=== PATIENT | male | born 1945 | race African-American/Black ===

== ENCOUNTER 2018-05-23 10:07 | Observation (INO) | payer OTHER ==
[2018-05-20 09:59] LABS: BASOPHILS # (AUTO) 0.1 (0.0-0.1); BASOPHILS % 0.9 % (0.0-1.0); EOSINOPHILS # (AUTO) 0.2 (0.0-0.4); EOSINOPHILS % 2.3 % (0.0-6.0); HEMATOCRIT 43.8 % (38.2-49.6); HEMOGLOBIN 14.6 g/dL (14.0-18.0); LYMPHOCYTES # (AUTO) 1.4 (1.0-3.2); LYMPHOCYTES % 17.4 % (18.0-39.1); MEAN CORPUSCULAR HEMOGLOBIN 29.3 pg (28-32); MEAN CORPUSCULAR HGB CONC 33.3 g/dL (31-35); MONOCYTES # (AUTO) 0.7 (0.2-0.8); NEUTROPHILS # (AUTO) 5.8 (2.1-6.9); NEUTROPHILS % 70.2 % (38.7-80.0); PLATELET COUNT 283 x10e3/uL (140-360); RED BLOOD COUNT 4.98 x10e6/uL (4.3-5.7)
[2018-05-20 10:10] LABS: ANION GAP 16.7 mmol/L (8-16); BLOOD UREA NITROGEN 18 mg/dL (7-26); BUN/CREATININE RATIO 15 (6-25); CALCIUM 9.9 mg/dL (8.4-10.2); CARBON DIOXIDE 25 mmol/L (22-29); CHLORIDE 101 mmol/L (98-107); CREATININE, SERUM 1.19 mg/dL (0.72-1.25); EST GLOMERULAR FILTRATION RATE > 60 ML/MIN (60-); GLUCOSE 112 mg/dL (74-118); POTASSIUM 3.7 mmol/L (3.5-5.1); SODIUM 139 mmol/L (136-145)
--- NOTE | 2018-05-20 10:57 | Diagnostic Imaging Report ---
PROCEDURE: Frontal and lateral views of the chest. COMPARISON: None. INDICATIONS: PRE OPERATIVE CHEST X-RAY FOR UROLOGY [id number] FINDINGS: Lines/tubes: None. Lungs: The lungs are well inflated and clear. There is no evidence of pneumonia or pulmonary edema. Pleura: There is no pleural effusion or pneumothorax. Heart and mediastinum: The cardiomediastinal silhouette is unremarkable. Bones: No acute bony abnormality. IMPRESSION: No acute radiographic abnormality. Dictated by: SHEILA TOTH M.D. on 05/20/2018 at 11:05 Electronically approved by: SHEILA TOTH M.D. on 05/20/2018 at 11:05
[~2018-05-23] VITALS: Ht 175.3 cm; Wt 110.8 kg
[~2018-05-23 10:07] MED LIST: ACTOS15 MG PO; AMLODIPINE BESY10 MG PO; ASPIR-LOW81 MG PO; ASPIRIN325 MG PO; BYDUREON2 MG SQ; FISH OIL 1,0001 EAC2 PO; FUROSEMIDE40 MG PO; HYDROCHLOROTHIA25 MG PO; IRON325 M1; IRON325 MG PO; JANUMET XR 50-1 EAC1 PO; LIPITOR10 MG PO; LISINOPRIL-HCT1 EAC1 PO; LISINOPRIL10 MG PO; METFORMIN HCL500 MG PO; METOPROLOL SUCC50 MG PO; MINOXIDIL2.5 MG PO; MOBIC7.5 MG PO; NIACIN500 M1 PO; OMEPRAZOLE20 MG PO; TESTOSTERO200 MG/1 M IM; VIT B-12 PO
[2018-05-23] MEDS ORDERED: CEFTRIAXONE SOD 1 GM VIAL ONE (10:28)
[2018-05-23] MEDS ORDERED: CLINDAMYCIN 300MG 50 ML IV ONE (10:29)
[2018-05-23] MEDS ORDERED: GENTAMICIN 80MG/NS 100 ML 200 ML IV ONE (10:29)
[2018-05-23] MEDS ORDERED: BACITRACIN 50,000 UNIT VIAL ONE (12:30)
[2018-05-23] MEDS ORDERED: MUPIROCIN 2% OINT 22 GM TUBE ONE (12:30)
[2018-05-23] MEDS ORDERED: BUPIVACAINE 0.5%/EPI 30 ML SDV INJ ONE (14:19)
[2018-05-23] MEDS ORDERED: DEXAMETHASONE SOD PHOS INJ 4 MG/ML VIAL ONE (14:25)
[2018-05-23] MEDS ORDERED: KETOROLAC TROMETHAMINE 30 MG/ML VIAL ONE (14:25)
[2018-05-23] MEDS ORDERED: PROPOFOL IV EMULSION 10 MG/ML 20 ML VIAL ONE (14:25)
[2018-05-23] MEDS ORDERED: ONDANSETRON HCL INJ 2 MG/ML VIAL ONE (14:25)
[2018-05-23] MEDS ORDERED: LIDOCAINE HCL 2% LOCAL INJ 5 ML SDV VIAL INJ ONE (14:25)
[2018-05-23] MEDS ORDERED: SEVOFLURANE INHAL SOLN 250 ML PEN BTL ONE (14:25)
[2018-05-23] MEDS ORDERED: FENTANYL CITRATE/PF 100MCG/2 ML INJ ONE (14:33)
[2018-05-23] MEDS ORDERED: MIDAZOLAM HCL 2 MG/2 ML VIAL ONE (14:33)
[2018-05-23] MEDS ORDERED: MORPHINE SULFATE 1 MG/ML 30ML PCA IV PRN (15:15)
[2018-05-23] MEDS ORDERED: ONDANSETRON HCL INJ 2 MG/ML VIAL IV PRN (15:15)
[2018-05-23] MEDS ORDERED: NALOXONE HCL INJ 0.4 MG/ML AMP IV PRN (15:15)
[2018-05-23] MEDS ORDERED: DIPHENHYDRAMINE HCL 25 MG CAP PO PRN (15:15)
[2018-05-23] MEDS ORDERED: DIPHENHYDRAMINE HCL INJ 50 MG/ML VIAL IM PRN (15:15)
[2018-05-23] MEDS ORDERED: MORPHINE SULFATE 1 MG/ML 30ML PCA ONE (15:42)
[2018-05-23] MEDS ORDERED: CEFTRIAXONE SOD 1 GM VIAL IV SCH (16:00)
[2018-05-23 16:15] VITALS: BP 156/85
[2018-05-23 16:53] VITALS: BP 156/85
[2018-05-23] MEDS: SOD CHL 0.45%/POT CHL 20MEQ 1,000 ML IV SCH (18:03)
[2018-05-23] MEDS: DOCUSATE SODIUM 100 MG CAP PO SCH (18:03)
[2018-05-23 20:00] VITALS: BP 173/81
[2018-05-23] MEDS: CLINDAMYCIN 300MG 50 ML IV SCH (20:30)
[2018-05-24] VITALS: BP 119/51
[2018-05-24] MEDS: SOD CHL 0.45%/POT CHL 20MEQ 1,000 ML IV SCH (01:34)
[2018-05-24 04:00] VITALS: BP 142/68
[2018-05-24] MEDS: CLINDAMYCIN 300MG 50 ML IV SCH ×2 (04:40→11:00)
[2018-05-24 06:06] LABS: BASOPHILS % 0.3 % (0.0-1.0); EOSINOPHILS % 0.1 % (0.0-6.0); HEMATOCRIT 38.1 % (38.2-49.6); LYMPHOCYTES # (AUTO) 1.2 (1.0-3.2); LYMPHOCYTES % 10.9 % (18.0-39.1); MEAN CORPUSCULAR HEMOGLOBIN 29.1 pg (28-32); MEAN CORPUSCULAR HGB CONC 34.1 g/dL (31-35); MEAN CORPUSCULAR VOLUME 85.2 fL (81-99); MONOCYTES # (AUTO) 0.8 (0.2-0.8); MONOCYTES % 7.1 % (4.4-11.3); NEUTROPHILS # (AUTO) 9.2 (2.1-6.9); NEUTROPHILS % 81.1 % (38.7-80.0); PLATELET COUNT 281 x10e3/uL (140-360); RED BLOOD COUNT 4.47 x10e6/uL (4.3-5.7); RED CELL DISTRIBUTION WIDTH 12.7 % (11.7-14.4)
[2018-05-24 06:48] LABS: ANION GAP 13.8 mmol/L (8-16); BLOOD UREA NITROGEN 22 mg/dL (7-26); BUN/CREATININE RATIO 17 (6-25); CALCIUM 8.9 mg/dL (8.4-10.2); CARBON DIOXIDE 23 mmol/L (22-29); CHLORIDE 104 mmol/L (98-107); CREATININE, SERUM 1.27 mg/dL (0.72-1.25); EST GLOMERULAR FILTRATION RATE > 60 ML/MIN (60-); GLUCOSE 164 mg/dL (74-118); POTASSIUM 3.8 mmol/L (3.5-5.1); SODIUM 137 mmol/L (136-145)
[2018-05-24 07:53] VITALS: BP 171/77
[2018-05-24 08:30] VITALS: BP 171/77
[2018-05-24] MEDS: DOCUSATE SODIUM 100 MG CAP PO SCH (08:30)
[2018-05-24] MEDS ORDERED: DEXTROSE 50% SYRINGE 50 ML IV PRN (09:00)
[2018-05-24] MEDS: METOPROLOL SUCCINATE 50 MG TAB XL PO SCH ×2 (09:00→09:15)
[2018-05-24] MEDS ORDERED: MINOXIDIL 2.5 MG TAB PO SCH (09:00)
[2018-05-24] MEDS ORDERED: ATORVASTATIN 10 MG TAB PO SCH (09:00)
[2018-05-24] MEDS ORDERED: AMLODIPINE BESYLATE 10 MG TAB PO SCH (09:00)
[2018-05-24] MEDS ORDERED: LISINOPRIL 10 MG TAB PO SCH (09:00)
[2018-05-24] MEDS ORDERED: MORPHINE SULFATE INJ 4 MG/ML INJ IV PRN (09:00)
[2018-05-24] MEDS ORDERED: LISINOPRIL 20 MG TAB PO SCH (09:30)
[2018-05-24] MEDS ORDERED: PANTOPRAZOLE SOD 40 MG TABEC PO SCH (09:30)
[2018-05-24] MEDS ORDERED: METFORMIN HCL 500 MG TAB PO SCH (10:00)
[2018-05-24] MEDS ORDERED: LEVAQUIN500 MG PO (11:02)
[2018-05-24] MEDS ORDERED: TYLENOL WITH C1 EACH PO (11:03)
[2018-05-24] MEDS ORDERED: INSULIN LISPRO 100 UNIT/1 ML 3ML VIAL SQ SCH (11:30)
[2018-05-24 11:55] VITALS: BP 161/76
[2018-05-24] MEDS ORDERED: CEFTRIAXONE SOD 1 GM VIAL IV SCH (14:00)
--- NOTE | 2018-07-14 01:08 | Operative Report ---
DATE OF PROCEDURE: May 23, 2018 PREOPERATIVE DIAGNOSIS: Malfunctioning penile prosthesis. POSTOPERATIVE DIAGNOSIS: Malfunctioning penile prosthesis. OPERATIONS PERFORMED: Revision and repair of inflatable penile prosthesis. MUD ANALYSIS WELL LOGGING CAPTAIN: Dr. Chrissie Granados ANESTHESIA: General. COMPLICATIONS: None. CLINICAL SUMMARY: Kenroy Mcdermott Jr. is a 73-year-old man, who has a well-functioning inflatable penile prosthesis. The patient again have trouble utilizing the pump. It was very difficult for him to inflate it. There was significant resistance. Patient was brought for revision. He is aware of the risks of bleeding, infection, injury to adjacent structures, need for additional procedures, and elected to proceed. OPERATIVE PROCEDURE IN DETAIL: Informed consent was verified. Kenroy Mcdermott Jr. was properly identified, taken to the operating room, placed on the operating table in supine position. Anesthesia was uneventfully begun. The patient's genitalia were then shaved, prepared for 10 minutes, and draped in the usual sterile fashion. Flexible cystourethroscopy was performed. The cystoscope was inserted under direct vision into the patient's urethra. It was guided down the unremarkable urethra past a normal sphincteric region through the prostate bed, significant for visually obstructing BPH. We entered the patient's bladder, where there were trabeculations noted. No suspicious mucosal lesions were identified. There were no strictures noted and there were no tumors noted. The cystoscope was withdrawn. Reyes catheter was placed. A transverse penoscrotal incision was then made. We isolated the pump. The pump was encased in thick scar tissue. We carefully dissected the pump out of this pocket and tested the prosthesis. The prosthesis now worked perfectly well now that we released this pump, which was constrained within this newly developed thick scar tissue. A new subdartos pouch was then developed in the midline. We verified hemostasis. Copious irrigation was performed. The pump was then replaced into this new pocket. We tested the pump within this pocket and the prosthesis worked perfectly well. Copious irrigation was performed with antibiotic irrigant and the scrotum was closed in 4 layers utilizing chromic suture. The final layer of the skin was performed as a vertical mattress suture. Sterile dressings were applied. The patient was uneventfully reversed from anesthesia and taken recovery room in stable condition. There were no complications to the procedure. Patient tolerated the procedure well. Sponge, needle, instrument count were correct x2 at the end of the case. Estimated blood loss was minimal. Will proceed with observation overnight with an intravenous antibiotics and we will follow the patient up in the office following his discharge. Job#: [id number] CQ cc:DR DR FLACO TSE
== END 2018-05-24 13:16 | disposition home or self-care (01) ==
LOC: OR 10:07 → PACU V 15:16 → MED/SURG 16:13
PROVIDERS: ADMIT Internal Medicine; ATTEND Internal Medicine
DX: T83.490A Other mechanical complication of implanted penile prosthesis, initial encounter (principal); E11.22 Type 2 diabetes mellitus with diabetic chronic kidney disease; I12.9 Hypertensive chronic kidney disease with stage 1 through stage 4 chronic kidney disease, or unspecified chronic kidney disease; N18.9 Chronic kidney disease, unspecified; G47.33 Obstructive sleep apnea (adult) (pediatric); E66.01 Morbid (severe) obesity due to excess calories; Z68.36 Body mass index [BMI] 36.0-36.9, adult; N52.9 Male erectile dysfunction, unspecified; E29.1 Testicular hypofunction; K42.9 Umbilical hernia without obstruction or gangrene; Z79.82 Long term (current) use of aspirin; Z87.891 Personal history of nicotine dependence; Y83.1 Surgical operation with implant of artificial internal device as the cause of abnormal reaction of the patient, or of later complication, without mention of misadventure at the time of the procedure; Z79.84 Long term (current) use of oral hypoglycemic drugs
CPT/HCPCS: 36415 ×3; 52000; 54408; 71046; 80048 ×2; 82948 ×2; 83735; 85025 ×2; 88304; 93005; G0378 ×2; J0696 ×2; J1100; J1580; J1885; J2001; J2250; J2270; J2405

== ENCOUNTER 2018-11-14 10:37 | Observation (INO) | payer MEDICARE, OTHER ==
[2018-11-07 14:03] LABS: BASOPHILS # (AUTO) 0.1 (0.0-0.1); BASOPHILS % 0.9 % (0.0-1.0); EOSINOPHILS # (AUTO) 0.1 (0.0-0.4); EOSINOPHILS % 1.7 % (0.0-6.0); HEMATOCRIT 43.4 % (38.2-49.6); LYMPHOCYTES # (AUTO) 1.6 (1.0-3.2); LYMPHOCYTES % 19.2 % (18.0-39.1); MEAN CORPUSCULAR HEMOGLOBIN 26.8 pg (28-32); MEAN CORPUSCULAR HGB CONC 32.3 g/dL (31-35); MONOCYTES # (AUTO) 0.7 (0.2-0.8); MONOCYTES % 8.6 % (4.4-11.3); NEUTROPHILS # (AUTO) 5.7 (2.1-6.9); NEUTROPHILS % 69.4 % (38.7-80.0); PLATELET COUNT 301 x10e3/uL (140-360); RED BLOOD COUNT 5.23 x10e6/uL (4.3-5.7); RED CELL DISTRIBUTION WIDTH 14.5 % (11.7-14.4)
[2018-11-07 14:18] LABS: ANION GAP 14.7 mmol/L (8-16); BLOOD UREA NITROGEN 18 mg/dL (7-26); BUN/CREATININE RATIO 14 (6-25); CALCIUM 10.1 mg/dL (8.4-10.2); CARBON DIOXIDE 31 mmol/L (22-29); CHLORIDE 99 mmol/L (98-107); CREATININE, SERUM 1.26 mg/dL (0.72-1.25); EST GLOMERULAR FILTRATION RATE > 60 ML/MIN (60-); GLUCOSE 124 mg/dL (74-118); POTASSIUM 3.7 mmol/L (3.5-5.1); SODIUM 141 mmol/L (136-145)
[~2018-11-14] VITALS: Ht 172.7 cm; Wt 109.8 kg
[~2018-11-14 10:37] MED LIST changes: +LEVAQUIN500 MG PO; +TYLENOL WITH C1 EACH PO
--- OUTSIDE RECORDS SUMMARY | 2018-11-14 10:39 | XMS REPORT ---
Author Author [facility] Address Unknown Phone Unavailable Care Team Providers Care Oil Field Rig Builder Name Role Phone SHIMON LINARES Unavailable Unavailable Problems This patient has no known problems. Allergies, Adverse Reactions, Alerts This patient has no known allergies or adverse reactions. Medications This patient has no known medications. Results Test Description Test Time Test Comments Text Results Atomic Results Result Comments CHEST 2 VIEWS 2018-05-20 11:05:00 [place] [id number] Patient Name: ZACHARIAH PINEDA JR MR #: [id number] : 1945 Age/Sex: 73/M Req #: [id number] Adm Physician: Ordered by: SHIMON LINARES MD Report #: [id number] Location: OR Room/Bed: Procedure: [id number] DX/CHEST 2 VIEWS Exam Date: 05/20/18 Exam Time: 1000 REPORT STATUS: Signed PROCEDURE: Frontal and lateral views of the chest. COMPARISON: None. INDICATIONS: PRE OPERATIVE CHEST X-RAY FOR UROLOGY [id number] FINDINGS: Lines/tubes: None. Lungs: The lungs are well inflated and clear. There is no evidence of pneumonia or pulmonary edema. Pleura: There is no pleural effusion or pneumothorax. Heart and mediastinum: The cardiomediastinal silhouette is unremarkable. Bones: No acute bony abnormality. IMPRESSION: No acute radiographic abnormality. Dictated by: SHEILA TOTH M.D. on 05/20/2018 at 11:05 Electronically approved by: SHEILA TOTH M.D. on 05/20/2018 at 11:05 Dictated By: SHEILA TOTH MD 110 Transcribed By: CRISTOBAL on 05/20/181104 COPY TO: SHIMON LINARES MD
[2018-11-14] MEDS ORDERED: CLINDAMYCIN 600MG / 50ML 50 ML IV ONE (11:00)
[2018-11-14] MEDS ORDERED: PIPER-TAZ 3.375 GM 50 ML ONE (11:01)
[2018-11-14] MEDS ORDERED: GENTAMICIN 80MG/NS 100 ML 200 ML IV ONE (11:01)
[2018-11-14] MEDS ORDERED: BUPIVACAINE HCL 0.5% INJ 30 ML VIAL INJ ONE (11:57)
[2018-11-14] MEDS ORDERED: BACITRACIN 50,000 UNIT VIAL ONE (11:57)
[2018-11-14] MEDS ORDERED: BACITRACIN ZINC 15 GM OINT ONE (11:57)
[2018-11-14] MEDS ORDERED: SODIUM CHLORIDE 0.9% 1000ML 1,000 ML IV SCH (15:47)
[2018-11-14] MEDS ORDERED: NALOXONE HCL INJ 0.4 MG/ML AMP IV PRN (16:00)
[2018-11-14] MEDS ORDERED: ONDANSETRON HCL INJ 2MG/ML 2ML 2 MG/ML VIAL IV PRN (16:00)
[2018-11-14] MEDS ORDERED: MORPHINE SULFATE 1 MG/ML 30ML PCA IV PRN (16:00)
[2018-11-14] MEDS ORDERED: DIPHENHYDRAMINE HCL INJ 50 MG/ML VIAL IM PRN (16:00)
[2018-11-14] MEDS ORDERED: DIPHENHYDRAMINE HCL 25 MG CAP PO PRN (16:00)
[2018-11-14] MEDS ORDERED: MORPHINE SULFATE INJ 4 MG/ML INJ 1ML ONE (16:02)
[2018-11-14 16:54] VITALS: BP 186/84
--- NOTE | 2018-11-14 17:06 | NUR ---
Recvd patient from PACU, AAOx3. Assisted him to bed, with 2 person assist, on O2 2L NC &STERILE PROCESSING TECH Pump, surgery site on penile area dressing is intact with cedeno ON, not in any distress, call light in reach, keep monitoring
[2018-11-14 17:39] VITALS: BP 186/84
[2018-11-14] MEDS ORDERED: LIDOCAINE HCL 2% LOCAL INJ 5 ML SDV VIAL INJ ONE (17:48)
[2018-11-14] MEDS ORDERED: SEVOFLURANE INHAL SOLN 250 ML PEN BTL ONE (17:48)
[2018-11-14] MEDS ORDERED: ONDANSETRON HCL INJ 2MG/ML 2ML 2 MG/ML VIAL ONE (17:48)
[2018-11-14] MEDS ORDERED: PROPOFOL IV EMULSION 10 MG/ML 20 ML VIAL ONE (17:48)
[2018-11-14] MEDS ORDERED: DEXAMETHASONE SOD PHOS INJ 4 MG/ML VIAL ONE (17:48)
[2018-11-14] MEDS ORDERED: LISINOPRIL 10 MG TAB PO SCH (18:00)
[2018-11-14] MEDS: PIPERACILLIN/TAZO 2.25 GM 50 ML IV SCH (18:43)
[2018-11-14] MEDS: DOCUSATE SODIUM 100 MG CAP PO SCH (18:43)
[2018-11-14] MEDS ORDERED: FENTANYL CITRATE/PF 100MCG/2 ML INJ ONE (18:51)
[2018-11-14] MEDS ORDERED: MIDAZOLAM HCL 2 MG/2 ML VIAL ONE (18:51)
--- NOTE | 2018-11-14 19:00 | NUR ---
received report from day nurse. patient is resting comfortably in bed. bed is in lowest position and call leggett is within reach. will continue to monitor patient.
[2018-11-14] MEDS: LISINOPRIL 20 MG TAB PO SCH (19:17)
[2018-11-14] MEDS: AMLODIPINE BESYLATE 10 MG TAB PO SCH (19:17)
[2018-11-14 20:00] VITALS: BP 173/82
[2018-11-14 20:27] VITALS: BP 173/82
[2018-11-14] MEDS: METOPROLOL SUCCINATE 50 MG TAB XL PO SCH (21:43)
[2018-11-14] MEDS: CLINDAMYCIN 300MG 50 ML IV SCH (21:43)
[2018-11-15 00:56] VITALS: BP 150/69
[2018-11-15 04:50] VITALS: BP 133/63
[2018-11-15] MEDS: CLINDAMYCIN 300MG 50 ML IV SCH (04:57)
[2018-11-15] MEDS: PIPERACILLIN/TAZO 2.25 GM 50 ML IV SCH ×4 (06:05→18:20)
--- NOTE | 2018-11-15 07:05 | NUR ---
Report given to day nurse. patient is resting comfortably in the bed. bed is in lowest position and call leggett is within reach.
[2018-11-15 07:06] LABS: BASOPHILS # (AUTO) 0.1 (0.0-0.1); BASOPHILS % 0.5 % (0.0-1.0); EOSINOPHILS # (AUTO) 0.2 (0.0-0.4); EOSINOPHILS % 1.5 % (0.0-6.0); HEMATOCRIT 37.9 % (38.2-49.6); HEMOGLOBIN 12.4 g/dL (14.0-18.0); LYMPHOCYTES # (AUTO) 1.2 (1.0-3.2); LYMPHOCYTES % 11.6 % (18.0-39.1); MEAN CORPUSCULAR HEMOGLOBIN 27.3 pg (28-32); MEAN CORPUSCULAR HGB CONC 32.7 g/dL (31-35); MEAN CORPUSCULAR VOLUME 83.5 fL (81-99); MONOCYTES # (AUTO) 1.1 (0.2-0.8); MONOCYTES % 10.3 % (4.4-11.3); NEUTROPHILS # (AUTO) 7.7 (2.1-6.9); NEUTROPHILS % 75.8 % (38.7-80.0); PLATELET COUNT 269 x10e3/uL (140-360); RED BLOOD COUNT 4.54 x10e6/uL (4.3-5.7); RED CELL DISTRIBUTION WIDTH 14.6 % (11.7-14.4)
[2018-11-15 07:21] LABS: ANION GAP 9.5 mmol/L (8-16); BLOOD UREA NITROGEN 15 mg/dL (7-26); BUN/CREATININE RATIO 11 (6-25); CALCIUM 8.5 mg/dL (8.4-10.2); CARBON DIOXIDE 29 mmol/L (22-29); CHLORIDE 99 mmol/L (98-107); CREATININE, SERUM 1.38 mg/dL (0.72-1.25); EST GLOMERULAR FILTRATION RATE > 60 ML/MIN (60-); GLUCOSE 155 mg/dL (74-118); POTASSIUM 3.5 mmol/L (3.5-5.1); SODIUM 134 mmol/L (136-145)
[2018-11-15 07:42] VITALS: BP 146/71
[2018-11-15] MEDS ORDERED: HYDROCODONE/APAP 10MG-325MG TAB PO PRN (09:00)
[2018-11-15] MEDS ORDERED: POTASSIUM CHLORIDE 10MEQ EA PO ONE (09:00)
[2018-11-15] MEDS: AMLODIPINE BESYLATE 10 MG TAB PO SCH (09:00)
[2018-11-15] MEDS ORDERED: ONDANSETRON HCL INJ 2MG/ML 2ML 2 MG/ML VIAL IV PRN (09:00)
[2018-11-15] MEDS ORDERED: FUROSEMIDE INJ 10 MG/ML 4 ML VIAL IV ONE (09:00)
[2018-11-15] MEDS: MINOXIDIL 2.5 MG TAB PO SCH (09:00)
[2018-11-15] MEDS: METOPROLOL SUCCINATE 50 MG TAB XL PO SCH (09:00)
[2018-11-15] MEDS: DOCUSATE SODIUM 100 MG CAP PO SCH ×2 (09:00→18:47)
[2018-11-15] MEDS ORDERED: MORPHINE SULFATE INJ 4 MG/ML INJ 1ML IV PRN (09:00)
[2018-11-15] MEDS: PANTOPRAZOLE SOD 40 MG TABEC PO SCH ×2 (09:00→18:47)
[2018-11-15] MEDS: LISINOPRIL 20 MG TAB PO SCH (09:00)
[2018-11-15] MEDS ORDERED: ONDANSETRON HCL 4 MG ORAL DISINTEGRATING TAB PO PRN (09:15)
--- NOTE | 2018-11-15 09:45 | NUR ---
Pt refused to take medications from supply at hospital, took at home meds that are with pt in bag in room. Pt stated he does not want to be charged $1,000 for pills while he is here when he takes the same medications at home and has own supply.
[2018-11-15] MEDS ORDERED: ACETAMINOPHEN/CODEINE 300MG - 30MG TAB PO PRN (10:00)
[2018-11-15 11:14] VITALS: BP 143/66
[2018-11-15] MEDS: MORPHINE SULFATE INJ 4 MG/ML INJ 1ML IV PRN ×2 (12:30→16:33)
--- NOTE | 2018-11-15 12:50 | NUR ---
Pt A&O x3, at bedside. Bed in lowest position and locked for safety. C/o pain to genital area, pt stated pain at 03/18. Morphine administered at this time. Cedeno DC'd at this timer per Dr. Granados order. Scrotum elevated on towels, and ice applied to site. Pt c/o of discomfort during cedeno removal. IV antibiotics administered at this time per order. IV to R wrist, patent, no swelling or redness to site. Pain management in progress at this time.
--- NOTE | 2018-11-15 14:35 | NUR ---
Visit made by the Spiritual Care Department Pastoral Visitor, Adina Restrepo. PV provided pastoral presence, hospitality, prayer, and supportive listening. Pastoral Visitor informed pt/family of the scope of [employer] and availability. HAYLEY GORDILLO [place]acer Spiritual Care Department O: [phone] Pager: [phone] ([phone] calling from)
[2018-11-15 15:25] VITALS: BP 178/80
--- NOTE | 2018-11-15 15:33 | History and Physical ---
The patient is status post revision of his penile prosthetic. SUMMARY: The patient is a 73-year-old male with diabetes, hypertension, dyslipidemia, reflux. Overall, the patient is status post postoperative day #1 revision of his penile prosthesis. The patient is having increasing swelling due to IV fluid given. The patient is otherwise stable at this time. He is not having any increasing shortness of breath, although he is having some difficulty with pain on a COMMERCIAL LOAN COORDINATOR pump. PAST MEDICAL HISTORY: Penile prosthesis status post revision, erectile dysfunction, hypertension, diabetes type 2, dyslipidemia, osteoarthritis, and reflux. PAST SURGICAL HISTORY: Penile prosthesis implant, now status post revision, history of previous cystoscopy. SOCIAL HISTORY: The patient quit smoking many years ago. He does not use alcohol. No recreational drugs. ALLERGIES: NO KNOWN ALLERGIES. HOME MEDICATIONS: List is reviewed. REVIEW OF SYSTEMS: Increasing swelling of lower extremity and groin area. PHYSICAL EXAMINATION: VITAL SIGNS: Temperature is 98, blood pressure 146/71, pulse rate 79, respirations 18. GENERAL: The patient is in no acute distress. He is awake. HEENT: Normocephalic, atraumatic. Pupils reactive. Anicteric. NECK: Supple grossly. PULMONARY: Diminished breath sounds without any wheezing or rales. CARDIOVASCULAR: S1, S2. Regular rate and rhythm. ABDOMEN: Soft and unremarkable. EXTREMITIES: No cyanosis or edema. NEUROLOGIC: No focal deficit. LABORATORY DATA: Sodium is 134, potassium 3.5, chloride 99, bicarb 29, BUN is 15, creatinine 1.4, glucose 155. WBC is 10, hemoglobin 12.4, hematocrit 37.9, platelets are 269. IMPRESSION: 1. Status post postoperative day #1 revision of inflatable penile prosthesis. 2. Generalized edema. 3. Baseline hypertension, diabetes, and dyslipidemia. PLAN: Resume home medication except for Actos. Continue with management potassium. Continue with home medication with some adjustment. Insulin sliding scale coverage. We will check the patient's lab work. Incentive spirometry and PT/OT. MD IRENE Castro/MODL /[id number]
--- NOTE | 2018-11-15 18:50 | NUR ---
Received report from previous nurse. Call light within reach. at bedside
[2018-11-15 20:00] VITALS: BP 168/85
[2018-11-15] MEDS ORDERED: ATORVASTATIN 10 MG TAB PO SCH (21:00)
--- NOTE | 2018-11-15 22:30 | NUR ---
Called Dr. Castellanos and left a message. Patient wants something for constipation except colace.
[2018-11-16] VITALS: BP 174/81
[2018-11-16] MEDS: PIPERACILLIN/TAZO 2.25 GM 50 ML IV SCH ×3 (00:12→11:50)
[2018-11-16 00:20] VITALS: BP 174/81
--- NOTE | 2018-11-16 03:30 | NUR ---
Patient seen sitting on the toilet in the bathroom. Patient was told to call for assistance if needed.
[2018-11-16 04:00] VITALS: BP 163/83
[2018-11-16 06:02] LABS: BASOPHILS % 0.3 % (0.0-1.0); EOSINOPHILS % 0.1 % (0.0-6.0); HEMATOCRIT 38.5 % (38.2-49.6); HEMOGLOBIN 12.8 g/dL (14.0-18.0); LYMPHOCYTES # (AUTO) 0.8 (1.0-3.2); MEAN CORPUSCULAR HEMOGLOBIN 27.5 pg (28-32); MEAN CORPUSCULAR HGB CONC 33.2 g/dL (31-35); MEAN CORPUSCULAR VOLUME 82.8 fL (81-99); MONOCYTES # (AUTO) 1.5 (0.2-0.8); MONOCYTES % 9.7 % (4.4-11.3); NEUTROPHILS # (AUTO) 12.8 (2.1-6.9); NEUTROPHILS % 84.2 % (38.7-80.0); PLATELET COUNT 255 x10e3/uL (140-360); RED BLOOD COUNT 4.65 x10e6/uL (4.3-5.7); RED CELL DISTRIBUTION WIDTH 14.5 % (11.7-14.4)
[2018-11-16] MEDS ORDERED: SODIUM CHLORIDE 0.9% 250ML 250 ML ONE (06:16)
[2018-11-16 06:24] LABS: ANION GAP 13.5 mmol/L (8-16); CALCIUM 9.1 mg/dL (8.4-10.2); CREATININE, SERUM 2.43 mg/dL (0.72-1.25); POTASSIUM 3.5 mmol/L (3.5-5.1)
--- NOTE | 2018-11-16 07:22 | NUR ---
GAVE REPORT TO ONCOMING NURSE. CALL LIGHT WITHIN REACH. FAMILY AT BEDSIDE
--- NOTE | 2018-11-16 07:43 | NUR ---
16f cedeno inserted per Dr Granados. 1100cc blood tinged urine removed. patient states much relief.
[2018-11-16 08:17] VITALS: BP 165/76
[2018-11-16] MEDS ORDERED: BISACODYL 10 MG SUPP PR ONE (08:45)
[2018-11-16] MEDS ORDERED: BISACODYL 10 MG SUPP PR PRN (08:45)
[2018-11-16] MEDS: METOPROLOL SUCCINATE 50 MG TAB XL PO SCH (08:52)
[2018-11-16] MEDS: DOCUSATE SODIUM 100 MG CAP PO SCH (08:52)
[2018-11-16] MEDS: PANTOPRAZOLE SOD 40 MG TABEC PO SCH (08:52)
[2018-11-16] MEDS: AMLODIPINE BESYLATE 10 MG TAB PO SCH (08:52)
[2018-11-16] MEDS: LISINOPRIL 20 MG TAB PO SCH (08:52)
[2018-11-16] MEDS: MINOXIDIL 2.5 MG TAB PO SCH (08:52)
[2018-11-16] MEDS ORDERED: SENNA-S TABLET PO SCH (09:00)
[2018-11-16 09:53] VITALS: BP 165/76
[2018-11-16 11:52] VITALS: BP 165/76
[2018-11-16] MEDS ORDERED: LEVAQUIN500 MG PO (13:14)
[2018-11-16] MEDS ORDERED: TYLENOL WITH C1 EACH PO (13:14)
[2018-11-16] MEDS ORDERED: FLOMAX0.4 MG PO (13:14)
--- NOTE | 2018-12-15 06:16 | Operative Report ---
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 OPERATIONS PERFORMED: 1. Removal of all components of inflatable penile prosthesis. 2. Implantation of self-contained non-inflatable penile prosthesis. ANESTHESIA: General. CHEF BROILER OR FRY: Chrissie Granados MD COMPLICATIONS: None. CLINICAL SUMMARY: Kenroy Mcdermott Jr. 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 He underwent implantation of penile prosthesis. Procedure has worked well and then the pump became very difficult to inflate. We explored this patient and found that the patient's pump was encased in extremely dense scar tissue preventing its mobility. We completely released the pump and created a brand new pocket and then the patient's penile prosthesis worked for some time. However, the patient's penile prosthesis again began to malfunction and neither he nor I were able to make the patient's prosthesis work. The patient was brought to the operating room to replace his penile prosthesis, most likely with a noninflatable type and, of course, this will be based on operative findings. He is aware of the risks of bleeding, infection, injury to adjacent structures, need for additional procedures, and potential permanence of his erectile dysfunction. He understood these risks and elected to proceed. OPERATIVE PROCEDURE IN DETAIL: Informed consent was verified. Baldemar Jasmine Jr. was properly identified, taken to the operating room, placed on the operating table in the supine position. Anesthesia was uneventfully begun. The patient's genitalia and abdomen were shaved, prepared with with including 10 minutes scrub time by the clock and draped in usual sterile fashion. A transverse upper scrotal incision was made, carried through all layers of the scrotum. We identified the patient's pump. We explanted to the patient that the patient's pump was encased by rather dramatic amount of scarring. This degree of scarring is most remarkable, but it is recurrent that the scarring now is even worse than the severe scarring that caused the inability to manipulate the pump. This explains while under anesthesia prior to the incision, we were unable to manipulate the pump. Once the pump was freed, the penile prosthesis appeared to be functional. However, due to the patient's scarring, the inflatable penile prosthesis is not a viable option for managing his impotence. We followed the tubing to each cylinder. We then incised each corpora cavernosa utilizing the Reyes catheter as a guide to avoiding injuring the urethra. Incisions were made in each corpora and the cylinders were explanted. We then followed the tubing into the groin region where we carefully dissected and eventually explanted the reservoir as well. All the components of the inflatable penile prosthesis were thus removed and sent for identification. Copious irrigation with antibiotic irrigant was performed of all regions of dissection. We pre-placed Vicryl sutures throughout the corporal incisions and then we utilized a Spectra concealable penile prosthesis. It was 12 mm in width and 20 cm in length and added 6 cm of rear tip extenders. We placed these new mechanical cylinders into each corpora cavernosa. They fit very well. We then tied down all the previously placed sutures and obtained excellent hemostasis. Copious irrigation was then performed. We verified hemostasis. The patient's incision was then approximated in multiple layers utilizing 3-0 chromic sutures. The final layer of the skin was approximated with utilizing vertical mattress interrupted sutures. Sterile dressings were applied and the patient was uneventfully reversed from anesthesia and taken to recovery room in stable condition. There were no complications of the procedure. The patient tolerated the procedure well. Sponge, needle, and instrument counts were of course correct x2 at the end of the case. For estimated blood loss, please refer to the anesthetic record. We will proceed with admitting the patient for observation, following the patient closely and of course in a long-term basis. Dickson Granados MD [place]/MODL /[id number] cc: Dr. Kimberly Sifuentes
== END 2018-11-16 14:24 | disposition home or self-care (01) ==
LOC: OR 10:37 → PACU V 15:49 → IMCU 16:45
PROVIDERS: ADMIT Urology; ATTEND Urology
DX: T83.410A Breakdown (mechanical) of implanted penile prosthesis, initial encounter (principal); G47.33 Obstructive sleep apnea (adult) (pediatric); I10 Essential (primary) hypertension; E11.9 Type 2 diabetes mellitus without complications; E66.9 Obesity, unspecified; Z68.36 Body mass index [BMI] 36.0-36.9, adult; R80.9 Proteinuria, unspecified; E78.5 Hyperlipidemia, unspecified; Z87.891 Personal history of nicotine dependence; K21.9 Gastro-esophageal reflux disease without esophagitis; E78.00 Pure hypercholesterolemia, unspecified; Z79.84 Long term (current) use of oral hypoglycemic drugs
CPT/HCPCS: 36415 ×3; 54410; 80048 ×3; 82948 ×2; 85025 ×3; 87071; 87075; 87205; 93005; 97161; C2622; G0378 ×3; J1100; J1580; J1940; J2001; J2250; J2270 ×2; J2405; J2543 ×4; J2704; J7030; J7050; S0164 ×2; J3010

== ENCOUNTER 2024-01-17 05:18 | Inpatient (IN) | payer MEDICARE ==
[2024-01-13 15:31] LABS: BASOPHILS # (AUTO) 0.1 (0.0-0.1); BASOPHILS % 0.8 % (0.0-1.0); EOSINOPHILS # (AUTO) 0.1 (0.0-0.4); EOSINOPHILS % 2.3 % (0.0-6.0); HEMOGLOBIN 12.8 g/dL (14.0-18.0); LYMPHOCYTES # (AUTO) 1.4 (1.0-3.2); LYMPHOCYTES % 22.4 % (18.0-39.1); MEAN CORPUSCULAR HEMOGLOBIN 30.5 pg (28-32); MEAN CORPUSCULAR HGB CONC 33.7 g/dL (31-35); MEAN CORPUSCULAR VOLUME 90.5 fL (81-99); MONOCYTES # (AUTO) 0.5 (0.2-0.8); MONOCYTES % 7.4 % (4.4-11.3); NEUTROPHILS % 66.6 % (38.7-80.0); PLATELET COUNT 232 x10e3/uL (140-360); RED CELL DISTRIBUTION WIDTH 14.2 % (11.7-14.4); WHITE BLOOD COUNT 6.07 x10e3/uL (4.8-10.8)
[2024-01-13 15:47] LABS: ANION GAP 13.4 mmol/L (8-16); CALCIUM 9.4 mg/dL (8.4-10.2); CREATININE, SERUM 1.48 mg/dL (0.72-1.25); POTASSIUM 4.4 mmol/L (3.5-5.1)
[~2024-01-17] VITALS: Ht 175.3 cm; Wt 107.0 kg
[~2024-01-17 05:18] MED LIST changes: +ACETAMINOPHEN650 MG PO; +ERTAPENEM1 GM IV; +FARXIGA5 MG PO; +FINASTERIDE5 MG PO; +FLOMAX0.4 MG PO; +SPIRONOLACTONE25 MG PO
[2024-01-17] MEDS: MEROPENEM 1 GM VIAL ONE (06:00)
[2024-01-17] MEDS: GENTAMICIN 80MG/NS 100 ML 200 ML IV ONE (06:00)
[2024-01-17] MEDS: SODIUM CHLORIDE 0.9% 1000ML 1,000 ML ONE (06:01)
[2024-01-17] MEDS ORDERED: IOPAMIDOL 610MG/1ML 300 MG/ML VIAL IV ONE (06:59)
[2024-01-17] MEDS ORDERED: DIPHENHYDRAMINE HCL 25 MG CAP PO PRN (09:00)
[2024-01-17] MEDS ORDERED: ACETAMINOPHEN/CODEINE 300MG - 30MG TAB PO PRN (09:00)
[2024-01-17] MEDS ORDERED: ACETAMINOPHEN 1000 MG/100 ML IV PRN (09:00)
[2024-01-17 09:15] LABS: BASOPHILS % 0.7 % (0.0-1.0); EOSINOPHILS # (AUTO) 0.1 (0.0-0.4); EOSINOPHILS % 2.2 % (0.0-6.0); HEMATOCRIT 36.6 % (38.2-49.6); HEMOGLOBIN 12.1 g/dL (14.0-18.0); LYMPHOCYTES # (AUTO) 1.2 (1.0-3.2); LYMPHOCYTES % 22.3 % (18.0-39.1); MEAN CORPUSCULAR HEMOGLOBIN 30.6 pg (28-32); MEAN CORPUSCULAR HGB CONC 33.1 g/dL (31-35); MEAN CORPUSCULAR VOLUME 92.7 fL (81-99); MONOCYTES # (AUTO) 0.5 (0.2-0.8); MONOCYTES % 8.6 % (4.4-11.3); NEUTROPHILS # (AUTO) 3.6 (2.1-6.9); PLATELET COUNT 201 x10e3/uL (140-360); RED BLOOD COUNT 3.95 x10e6/uL (4.3-5.7); RED CELL DISTRIBUTION WIDTH 13.9 % (11.7-14.4); WHITE BLOOD COUNT 5.46 x10e3/uL (4.8-10.8)
[2024-01-17 09:32] LABS: ANION GAP 17.2 mmol/L (8-16); CREATININE, SERUM 1.31 mg/dL (0.72-1.25); POTASSIUM 4.2 mmol/L (3.5-5.1)
[2024-01-17 10:21] VITALS: BP 158/65; PULSE 51; RESP 19; TEMP 98.1; O2SAT 98
[2024-01-17 10:27] VITALS: BP 158/65; PULSE 51; RESP 19; TEMP 98.1; O2SAT 98
[2024-01-17] MEDS ORDERED: PIOGLITAZONE HC15 MG PO (10:57)
[2024-01-17] MEDS ORDERED: CLONIDINE HCL0.1 MG PO (10:57)
[2024-01-17] MEDS ORDERED: VITAMIN D31250 MCG PO (10:57)
[2024-01-17] MEDS ORDERED: GABAPENTIN100 MG PO (10:57)
[2024-01-17 11:44] VITALS: BP 152/70; PULSE 50; RESP 20; TEMP 97.1; O2SAT 97
[2024-01-17] MEDS: SODIUM CHLORIDE 0.9% 1000ML 1,000 ML IV SCH (11:59)
[2024-01-17] MEDS: SENNA-S TABLET PO SCH (12:00)
[2024-01-17] MEDS ORDERED: FENTANYL CITRATE/PF 100MCG/2 ML INJ ONE (12:34)
[2024-01-17] MEDS ORDERED: SEVOFLURANE INHAL SOLN 250 ML PEN BTL ONE (13:12)
[2024-01-17] MEDS ORDERED: ONDANSETRON HCL INJ 2MG/ML 2ML 2 MG/ML VIAL ONE (13:12)
[2024-01-17] MEDS ORDERED: LIDOCAINE HCL 2% LOCAL INJ 5 ML SDV VIAL INJ ONE (13:12)
[2024-01-17] MEDS ORDERED: PROPOFOL IV EMULSION 10 MG/ML 20 ML VIAL ONE (13:12)
[2024-01-17] MEDS: PHENAZOPYRIDINE HCL 100 MG TAB PO PRN (15:25)
[2024-01-17 15:44] VITALS: BP 151/72; PULSE 55; RESP 17; TEMP 97.9; O2SAT 100
[2024-01-17 20:00] VITALS: BP 153/66; PULSE 63; RESP 18; TEMP 99.1; O2SAT 99
[2024-01-17 20:40] VITALS: PULSE 60; RESP 18; O2SAT 93
[2024-01-18] VITALS (10 sets, daily range): BP systolic 150–162; BP diastolic 67–87; PULSE 64–77; RESP 16–20; TEMP 98.1–98.8; O2SAT 96–99
[2024-01-18 05:41] LABS: BASOPHILS % 0.1 % (0.0-1.0); EOSINOPHILS # (AUTO) 0.2 (0.0-0.4); EOSINOPHILS % 2.3 % (0.0-6.0); HEMATOCRIT 34.4 % (38.2-49.6); HEMOGLOBIN 11.1 g/dL (14.0-18.0); LYMPHOCYTES # (AUTO) 0.9 (1.0-3.2); LYMPHOCYTES % 11.1 % (18.0-39.1); MEAN CORPUSCULAR HEMOGLOBIN 29.6 pg (28-32); MEAN CORPUSCULAR HGB CONC 32.3 g/dL (31-35); MEAN CORPUSCULAR VOLUME 91.7 fL (81-99); MONOCYTES # (AUTO) 0.7 (0.2-0.8); MONOCYTES % 8.5 % (4.4-11.3); NEUTROPHILS # (AUTO) 6.3 (2.1-6.9); NEUTROPHILS % 77.6 % (38.7-80.0); PLATELET COUNT 200 x10e3/uL (140-360); RED BLOOD COUNT 3.75 x10e6/uL (4.3-5.7); RED CELL DISTRIBUTION WIDTH 13.6 % (11.7-14.4); WHITE BLOOD COUNT 8.13 x10e3/uL (4.8-10.8)
[2024-01-18 06:30] LABS: ANION GAP 6.1 mmol/L (8-16); CALCIUM 10.2 mg/dL (8.4-10.2); CREATININE, SERUM 1.25 mg/dL (0.72-1.25); POTASSIUM 4.1 mmol/L (3.5-5.1)
[2024-01-18] MEDS ORDERED: DEXTROSE 50% SYRINGE 50 ML IV PRN (08:30)
[2024-01-18] MEDS ORDERED: ACETAMINOPHEN 325 MG TAB PO PRN (08:30)
[2024-01-18] MEDS: GABAPENTIN 300 MG CAP PO SCH (09:59)
[2024-01-18] MEDS: LISINOPRIL 20 MG TAB PO SCH (10:00)
[2024-01-18] MEDS: FINASTERIDE 5 MG TAB PO SCH (10:00)
[2024-01-18] MEDS: AMLODIPINE BESYLATE 10 MG TAB PO SCH (10:00)
[2024-01-18] MEDS: PANTOPRAZOLE SOD 40 MG TABEC PO SCH (10:04)
[2024-01-18] MEDS: MINOXIDIL 2.5 MG TAB PO SCH (10:50)
[2024-01-18] MEDS: INSULIN LISPRO 100 UNIT/1 ML 3ML VIAL SQ SCH (11:30)
[2024-01-18] MEDS: TAMSULOSIN HCL 0.4 MG CAP PO SCH (16:32)
[2024-01-18] MEDS: ATORVASTATIN 10 MG TAB PO SCH (21:00)
[2024-01-18] MEDS: METOPROLOL SUCCINATE 50 MG TAB XL PO SCH (21:02)
[2024-01-19] VITALS (9 sets, daily range): BP systolic 152–171; BP diastolic 66–82; PULSE 59–80; RESP 18–21; TEMP 98.1–99.1; O2SAT 95–100
[2024-01-19 06:20] LABS: BASOPHILS % 0.6 % (0.0-1.0); EOSINOPHILS # (AUTO) 0.2 (0.0-0.4); EOSINOPHILS % 3.7 % (0.0-6.0); HEMATOCRIT 30.2 % (38.2-49.6); HEMOGLOBIN 10.3 g/dL (14.0-18.0); LYMPHOCYTES # (AUTO) 1.1 (1.0-3.2); LYMPHOCYTES % 17.3 % (18.0-39.1); MEAN CORPUSCULAR HEMOGLOBIN 30.8 pg (28-32); MEAN CORPUSCULAR HGB CONC 34.1 g/dL (31-35); MEAN CORPUSCULAR VOLUME 90.4 fL (81-99); MONOCYTES # (AUTO) 0.6 (0.2-0.8); MONOCYTES % 9.6 % (4.4-11.3); NEUTROPHILS # (AUTO) 4.3 (2.1-6.9); NEUTROPHILS % 68.6 % (38.7-80.0); PLATELET COUNT 184 x10e3/uL (140-360); RED BLOOD COUNT 3.34 x10e6/uL (4.3-5.7); RED CELL DISTRIBUTION WIDTH 13.9 % (11.7-14.4); WHITE BLOOD COUNT 6.24 x10e3/uL (4.8-10.8)
[2024-01-19 06:46] LABS: CREATININE, SERUM 1.04 mg/dL (0.72-1.25)
[2024-01-19 14:37] LABS: CALCIUM 8.7 mg/dL (8.4-10.2)
[2024-01-19] MEDS: ONDANSETRON HCL INJ 2MG/ML 2ML 2 MG/ML VIAL IV PRN (19:04)
[2024-01-20] VITALS (9 sets, daily range): BP systolic 129–179; BP diastolic 65–87; PULSE 62–67; RESP 18–21; TEMP 98.2–98.5; O2SAT 96–100
[2024-01-20 05:57] LABS: BASOPHILS % 0.3 % (0.0-1.0); EOSINOPHILS # (AUTO) 0.2 (0.0-0.4); EOSINOPHILS % 3.2 % (0.0-6.0); HEMATOCRIT 33.9 % (38.2-49.6); HEMOGLOBIN 10.9 g/dL (14.0-18.0); LYMPHOCYTES # (AUTO) 1.4 (1.0-3.2); LYMPHOCYTES % 19.3 % (18.0-39.1); MEAN CORPUSCULAR HEMOGLOBIN 29.9 pg (28-32); MEAN CORPUSCULAR HGB CONC 32.2 g/dL (31-35); MEAN CORPUSCULAR VOLUME 93.1 fL (81-99); MONOCYTES # (AUTO) 0.6 (0.2-0.8); MONOCYTES % 8.8 % (4.4-11.3); NEUTROPHILS % 68.1 % (38.7-80.0); PLATELET COUNT 213 x10e3/uL (140-360); RED BLOOD COUNT 3.64 x10e6/uL (4.3-5.7); RED CELL DISTRIBUTION WIDTH 13.5 % (11.7-14.4)
[2024-01-20 08:04] LABS: CREATININE, SERUM 1.03 mg/dL (0.72-1.25)
[2024-01-20] MEDS ORDERED: HYDROCODONE/APAP 7.5MG-325MG 1 EA TAB PO PRN (08:15)
[2024-01-20] MEDS ORDERED: HYDRALAZINE HCL 25 MG TAB PO PRN (08:15)
[2024-01-20 08:28] LABS: ANION GAP 6.5 mmol/L (8-16); POTASSIUM 4.5 mmol/L (3.0-5.1)
[2024-01-20 08:29] LABS: CALCIUM 9.1 mg/dL (8.0-10.3)
[2024-01-21] VITALS: BP 148/72; PULSE 57; RESP 18; TEMP 98.4; O2SAT 96
[2024-01-21 05:30] LABS: BASOPHILS % 0.2 % (0.0-1.0); EOSINOPHILS # (AUTO) 0.3 (0.0-0.4); EOSINOPHILS % 4.7 % (0.0-6.0); HEMOGLOBIN 10.6 g/dL (14.0-18.0); LYMPHOCYTES # (AUTO) 1.1 (1.0-3.2); LYMPHOCYTES % 16.8 % (18.0-39.1); MEAN CORPUSCULAR HEMOGLOBIN 30.8 pg (28-32); MEAN CORPUSCULAR HGB CONC 33.1 g/dL (31-35); MONOCYTES # (AUTO) 0.7 (0.2-0.8); MONOCYTES % 10.1 % (4.4-11.3); NEUTROPHILS # (AUTO) 4.5 (2.1-6.9); NEUTROPHILS % 67.7 % (38.7-80.0); PLATELET COUNT 200 x10e3/uL (140-360); RED BLOOD COUNT 3.44 x10e6/uL (4.3-5.7); RED CELL DISTRIBUTION WIDTH 13.6 % (11.7-14.4); WHITE BLOOD COUNT 6.65 x10e3/uL (4.8-10.8)
[2024-01-21 06:00] LABS: CREATININE, SERUM 1.16 mg/dL (0.72-1.25)
[2024-01-21 08:08] VITALS: BP 179/74; PULSE 59; RESP 18; TEMP 98.2; O2SAT 100
[2024-01-21 08:15] VITALS: BP 179/74; PULSE 59; RESP 18; TEMP 98.2; O2SAT 100
[2024-01-21 12:00] VITALS: BP 148/62; PULSE 62; RESP 18; TEMP 98.1; O2SAT 100
[2024-01-21 12:14] LABS: ANION GAP 13.1 mmol/L (8-16); CALCIUM 8.8 mg/dL (8.4-10.2); POTASSIUM 4.1 mmol/L (3.5-5.1)
[2024-01-21 18:35] VITALS: BP 165/75; PULSE 101; RESP 18; TEMP 98.1; O2SAT 100
[2024-01-21 20:01] VITALS: BP 185/82; PULSE 60
== END 2024-01-21 20:49 | disposition home or self-care (01) | DRG 713 ==
LOC: OR 05:18 → PACU V 08:51 → MED/SURG 10:21
PROVIDERS: ADMIT Internal Medicine; ATTEND Internal Medicine
PROC: BT101ZZ Fluoroscopy of Bladder using Low Osmolar Contrast (ICD-10-PCS; 2024-01-17)
PROC: BT161ZZ Fluoroscopy of Right Ureter using Low Osmolar Contrast (ICD-10-PCS; 2024-01-17)
PROC: BT171ZZ Fluoroscopy of Left Ureter using Low Osmolar Contrast (ICD-10-PCS; 2024-01-17)
PROC: 0T9B70Z Drainage of Bladder with Drainage Device, Via Natural or Artificial Opening (ICD-10-PCS; principal; 2024-01-17 07:30)
PROC: 0VT08ZZ Resection of Prostate, Via Natural or Artificial Opening Endoscopic (ICD-10-PCS; 2024-01-17 07:30)
DX: N40.1 Benign prostatic hyperplasia with lower urinary tract symptoms (principal); D62 Acute posthemorrhagic anemia; N13.8 Other obstructive and reflux uropathy; E11.42 Type 2 diabetes mellitus with diabetic polyneuropathy; I16.0 Hypertensive urgency; I12.9 Hypertensive chronic kidney disease with stage 1 through stage 4 chronic kidney disease, or unspecified chronic kidney disease; N18.9 Chronic kidney disease, unspecified; E78.5 Hyperlipidemia, unspecified; N28.1 Cyst of kidney, acquired; R31.0 Gross hematuria; K21.9 Gastro-esophageal reflux disease without esophagitis; N52.9 Male erectile dysfunction, unspecified; E66.9 Obesity, unspecified; Z68.34 Body mass index [BMI] 34.0-34.9, adult; Z79.84 Long term (current) use of oral hypoglycemic drugs; Z87.440 Personal history of urinary (tract) infections; Z87.891 Personal history of nicotine dependence
CPT/HCPCS: 36415; 71046; 74420; 80048; 82948; 83735; 85025; 88305; 93005; 94799; 99252; C1758; J1580; J2001; J2185; J2405; J7030